=== PATIENT | female | born 1990 | race Caucasian/White ===

== ENCOUNTER 2025-04-04 09:39 | Emergency (ER) | payer OTHER ==
[~2025-04-04] VITALS: Ht 175.3 cm; Wt 96.4 kg
[2025-04-04 09:47] VITALS: BP 127/83; PULSE 86; RESP 18; TEMP 97.7; O2SAT 97
[2025-04-04] MEDS ORDERED: ALBU18HF12 IH (09:48)
[2025-04-04 10:21] LABS: PLATELET COUNT (AUTO) 300 K/uL (150-450); RED BLOOD CELL COUNT(AUTO) 4.61 MIL/uL (4.00-5.20); RED CELL DISTRIBUTION WIDTH 12.3 % (11.5-14.5); WHITE BLOOD COUNT (AUTO) 6.9 K/uL (4.5-11.0)
[2025-04-04 10:30] LABS: CALCIUM, TOTAL 8.5 mg/dL (8.8-10.5); CREATININE 0.53 mg/dL (0.60-1.30); GLOMERULAR FILTR. RATE CALC > 60 mL/min (>60); GLUCOSE,RANDOM 232 mg/dL (70-110); SODIUM SERUM 134 mmol/L (136-145); UREA NITROGEN, BLOOD 8 mg/dL (7-18)
[2025-04-04 10:31] LABS: APPEARANCE,URINE HAZY (CLEAR); GLUCOSE, URINE (UA) >=1000 mg/dL (NEGATIVE); LEUKOCYTE ESTERASE ,URINE TRACE (NEGATIVE); NITRATE,URINE NEGATIVE (NEGATIVE); OCCULT BLOOD,URINE LARGE (NEGATIVE); SPECIFIC GRAVITIY, URINE 1.026 (1.003-1.030)
[2025-04-04 10:33] LABS: SULFOSALICYLIC ACID,URINE 2+ (Negative)
[2025-04-04 10:51] LABS: HCG,QUANTITATIVE 1 mIU/mL (0-6)
[2025-04-04] MEDS: IBUPROFEN 600 MG TABLET PO ONE (12:39)
[2025-04-04] MEDS ORDERED: IBUP-1492 PO (12:40)
== END 2025-04-04 13:01 | disposition left against medical advice (07) ==
LOC: EMS 09:39
DX: N93.9 Abnormal uterine and vaginal bleeding, unspecified (principal); R10.30 Lower abdominal pain, unspecified; E11.65 Type 2 diabetes mellitus with hyperglycemia; J45.909 Unspecified asthma, uncomplicated; N89.8 Other specified noninflammatory disorders of vagina; Z88.0 Allergy status to penicillin; Z53.29 Procedure and treatment not carried out because of patient's decision for other reasons; Z79.899 Other long term (current) drug therapy
CPT/HCPCS: 80048; 81001; 81002; 83690; 84702; 85025; 99283